=== PATIENT | female | born 1980 | race Caucasian/White ===

== ENCOUNTER 2017-11-16 05:31 | Emergency (ER) | payer BC, SELFPAY ==
[2017-11-16 05:32] VITALS: BP 167/121; PULSE 112; RESP 23; TEMP 36.6; O2SAT 97; BMI 41.2
--- NOTE | 2017-11-16 05:42 | EKG12_ITS ---
Test Reason : CP Blood Pressure : / mmHG Vent. Rate : 111 BPM Atrial Rate : 111 BPM P-R Int : 152 ms QRS Dur : 088 ms QT Int : 338 ms P-R-T Axes : 060 023 063 degrees QTc Int : 459 ms Sinus tachycardia Otherwise normal ECG Confirmed by KALLIE GARCIA MD ([id number]), content editor EARLINE LUNDBERG ([id number] on 11/22/2017 3:08:49 PM Referred By: DEREK Confirmed By:KALLIE GARCIA MD
--- NOTE | 2017-11-16 05:44 | ED.VISSUMM ---
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 No radicular symptoms. States mild dyspnea. Initially pain with palpation, now subsiding. No injuries. No recent illness or cough. No nausea or diaphoresis. No tobacco history. Denies history of hypertension, diabetes, hyper cholesterolemia. No PE risk factors. No previous similar symptoms in the past. History of anxiety and depression. Denies being on any medications. Physical Examination: General: Alert and oriented ?3, no acute distress HEENT: Normocephalic, atraumatic. Moist mucosa membranes Neck: supple, nontender. Cardiovascular: Regular tachycardic rate and rhythm, no murmurs Respiratory: Normal breath sounds, symmetric, no distress Abdomen: Soft, nontender, nondistended Extremities: Nontender, no edema, pulses intact ?4 Neuro: no focal neurological deficits. Test Results: EKG: Sinus rate of 111, no ST or T-wave changes. Emergency Department Course and Treatment: Patient initially stated chest wall pain. However she is tachycardic. EKG is sinus rhythm. Low risk Wells criteria for PE with her heart rate. Discussed with patient rule out with labs with a d-dimer. She is a difficult stick, therefore straight stick was obtained for blood draws first. It was hemolyzed. Lab came back reevaluate the patient, she did not want further sticks. I evaluate the patient myself, states she is symptom-free currently. She did not want further workup at this time. She has no cardiac risk factors. Discussed with patient she would still not like blood draws. She understands risk factors. Discuss if symptoms return she needs to come back for reevaluation. She understands and agrees with plan. All questions were answered. Treatment Plan: [] Disposition: Discharge Impression: Atypical chest pain This note was generated with [employer] dictation software. It may contain incorrect words, spelling, and punctuation that were not noted in review of the chart prior to signing ED Disposition - Plan for ED Patient: Disposition: Home or Assisted Living Chief Complaint: Chest Pain Diagnosis: Atypical chest pain Instructions: ED Chest Pain Atypical Unkn Cause Referrals: Puja Emmanuel DO [NON-STAFF] - 3-5 Days
[2017-11-16 06:03] LABS: Absolute Lymphocyte Count 2.95 X10^3/ul (0.83-4.51); Basophil# 0.05 X10^3/uL; Basophil% 0.5 % (0-1); Eosinophil# 0.26 X10^3/uL; Eosinophils% 2.8 % (0-5); Hematocrit 42.1 % (37-47); Hemoglobin 13.3 g/dl (12.0-15.0); Lymphocyte # 2.95 X10^3/ul (4.0); Lymphocyte % 32.3 % (19-41); Mean Corp Hgb Conc 31.6 g/gl (32-36); Mean Corpuscular Hgb 28.2 pg (27.0-32.0); Mean Corpuscular Volume 89.4 fL (81-99); Mean Platelet Vol. 9.7 fl (6.2-12.0); Monocyte# 0.82 X10^3/uL; Neutrophil # 5.02 X10^3/uL (2.7-7.7); Neutrophil % 55.1 % (47-70); Platelet Count 492 K/mm3 (150-450); RBC Distribution Width CV 12.8 % (11.6-14.6); RBC Distribution Width SD 41.7 fl (35.1-43.9); Red Blood Count 4.71 M/mm3 (4.2-5.4); White Blood Count 9.1 K/mm3 (4.4-11.0)
[2017-11-16 06:05] LABS: POSITIVE COUNT NO; POSITIVE DIFFERENTIAL NO; POSITIVE MORPHOLOGY NO
--- NOTE | 2017-11-16 06:10 | ED.RN ---
SANDER AND POLISHER STATED THAT PT REFUSED THE LAB DRAW AND WANTS TO LEAVE. AWARE.
[2017-11-16 06:27] VITALS: BP 158/80; PULSE 92; RESP 20; O2SAT 98
[2017-11-16 06:28] LABS: Anion Gap 6 (5-15); BUN 12 mg/dL (7-18); BUN/Creat Ratio 15.2 RATIO (10-20); Calcium,Total 8.9 mg/dL (8.5-10.1); Chloride 106 mmol/L (98-107); Creatinine, Serum 0.79 mg/dL (0.55-1.02); EST Glomerular Filtration Rate 86 mL/min (>60); Est Glom Filt Rate - Afr Amer 104 mL/min (>60); Estimated Creatinine Clearance 96.45 ml/min; Glucose 77 mg/dL (74-106); Potassium 4.2 mmol/L (3.5-5.1); Sodium Level 137 mmol/L (136-145)
[2017-11-16 06:43] LABS: Pregnancy, Serum, hCG Quali. NEGATIVE Negative (0-9 Nonpreg)
== END 2017-11-16 06:28 | disposition home or self-care (01) ==
PROVIDERS: Emergency Provider Emergency Medicine
DX: R07.89 Other chest pain (principal); R06.00 Dyspnea, unspecified; F41.9 Anxiety disorder, unspecified; F32.9 Major depressive disorder, single episode, unspecified
CPT/HCPCS: 80048; 84484; 84703; 85025; 93005; 99283

== ENCOUNTER → 2020-08-24 12:49 | Outpatient (CLI) | payer BC, SELFPAY ==
[2019-10-01 12:59] VITALS: BMI 41.2
[2020-08-24 13:59] LABS: EXAGEN MAILED SPECIMEN
[2020-08-24 15:23] LABS: Absolute Lymphocyte Count 2.07 X10^3/uL (0.83-4.51); Absolute Neutrophil Count 6.4 X10^3/uL (2.0-7.7); Basophil# 0.06 X10^3/uL; Basophil% 0.6 % (0-1); Eosinophils% 2.1 % (0-5); Hematocrit 41.6 % (37-47); Lymphocyte # 2.07 X10^3/ul (4.0); Lymphocyte % 21.7 % (19-41); Mean Corp Hgb Conc 31.3 g/dL (32-36); Mean Corpuscular Hgb 28.3 pg (27.0-32.0); Mean Corpuscular Volume 90.4 fL (81-99); Mean Platelet Vol. 9.8 fl (6.2-12.0); Monocyte# 0.78 X10^3/uL; Monocyte% 8.2 % (0-10); NRBC Flagged by Analyzer 0 % (0-5); Neutrophil # 6.38 X10^3/uL (2.7-7.7); Platelet Count 471 K/mm3 (150-450); RBC Distribution Width CV 12.7 % (11.6-14.6); RBC Distribution Width SD 41.3 fl (35.1-43.9); White Blood Count 9.5 K/mm3 (4.4-11.0)
[2020-08-24 15:37] LABS: Color, Urine Yellow (Yellow); Glucose, Dipstick Normal (Normal); Ketone-Dipstick Negative (Negative); Leukocyte Esterase-Dipstick 500 /ul (Negative); Nitrite-Dipstick Negative (Negative); Occult Blood-Urine 10 /ul (Negative); Protein-Dipstick Negative (Negative); Specific Gravity, Urine 1.025 (1.002-1.030); Urine Bilirubin Dipstick Negative (Negative); Urine Clarity Clear (Clear); Urine Urobilinogen Normal (Normal)
[2020-08-24 15:48] LABS: ALB/GLOB Ratio 0.8 RATIO (0.9-2.4); AST(SGOT) 18 U/L (15-37); Alanine Aminotransfer ALT/SGPT 20 U/L (13-56); Albumin, Serum 3.5 g/dL (3.2-5.0); Alkaline Phosphatase 105 U/L (45-117); Anion Gap 5 (5-15); BUN 12 mg/dL (7-18); BUN/Creat Ratio 15.1 RATIO (10-20); Calcium,Total 9.4 mg/dL (8.5-10.1); Chloride 101 mmol/L (98-107); EST Glomerular Filtration Rate 84 mL/min (>60); Est Glom Filt Rate - Afr Amer 102 mL/min (>60); Globulin 4.5 g/dL (2.2-4.2); Glucose 84 mg/dL (74-106); Potassium 3.8 mmol/L (3.5-5.1); Protein, Urine (Random) 10.9 mg/dL (<11.9); Protein:Creat Ratio 66 mg/g CRE (0-200); Sodium Level 136 mmol/L (136-145)
[2020-08-24 16:15] LABS: Hepatitis B Surface Antibody Non-Reactive; Hepatitis B Surface Antigen Non-Reactive (Nonreactive); Hepatitis C Antibody Non-Reactive (Nonreactive)
== END ==
PROVIDERS: PCP Family Medicine; Referring Provider Internal Medicine Rheumatology; Visit Provider Internal Medicine Rheumatology
DX: M06.4 Inflammatory polyarthropathy (principal); M21.41 Flat foot [pes planus] (acquired), right foot; R76.8 Other specified abnormal immunological findings in serum; R41.9 Unspecified symptoms and signs involving cognitive functions and awareness; F32.81 Premenstrual dysphoric disorder; I10 Essential (primary) hypertension; G47.33 Obstructive sleep apnea (adult) (pediatric)
CPT/HCPCS: 36415; 80053; 81002; 82570; 84156; 85025; 86706; 86803; 87340